=== PATIENT | male | born 1990 | race Caucasian/White ===

== ENCOUNTER 2024-05-21 08:42 | Emergency (ER) | payer BC, SELFPAY ==
--- OUTSIDE RECORDS SUMMARY | 2024-05-21 08:45 | XMS_ITS | Clinical Summary ---
Author Organization [facility] s & [facility] Address [address] [place] [address] Care Team Providers Care Avionics Shop Supervisor Name Role Phone Misty Castro Primary Care Provider [phone] [phone] Allergies No known active allergies Medications medication order composerIndication s:ADONIS (obstructive sleep apnea) 05/09/2022 AHI- 10.7 diagnosis obstructive sleep apnea 1 unit 06/05/19 23 Active omeprazole (PRILOSEC) 40 mg Delayed-Release capsuleIndications :Gastroesophageal reflux disease, unspecified whether esophagitis present Take 1 Capsule (40 mg) by mouth once daily before a meal. 90 Capsule 3 05/15/19 24 Active levothyroxine (SYNTHROID) 25 mcg tabletIndications: Subclinical hypothyroidism Take 1 Tablet (25 mcg) by mouth before breakfast. 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 (06/16/2022): EGD 06/2021 normal, repeat EGD in 3 years, propofol Colonoscopy 06/2022 normal, repeat in 3 years, propofol Encounters Date Type Department Care Team Description 05/21/2024 Nurse Triage [facility] [address] [place] [address] Misty Castro PA Blood In Stool from Last 3 Months Immunizations Immunization Administration Dates Next Due COVID-19 vaccine ([employer]-Bio NTech 30mcg/0.3mL) 12YO+ TRIP-SUCROSE PF, MDV 05/13/2022,03/12/2022 DTaP 06/16/1995, 2,01/18/1991,1990,1990 Hepatitis B, Unspecified 06/19/2003,01/02/2003,0 10/19/2002 Hib Conjugate, Unspecified 12/21/1991,,1990,1990 MMR 10/19/2002,12/21/1991 Polio Virus, Unspecified 06/16/1995,12/10,1990,1990 Td (Age >=7 Years) 10/19/2002 Tdap 03/12/2022 Varicella Vaccine 06/16/1995 Family History Medical History Relation Name Comments Obesity Brother Other Brother Peraza syndrome Cancer-colon Father Peraza syndrome Heart attack Maternal Aunt Cancer-colon Maternal Grandfather Diabetes type II Maternal Grandfather Diabetes type II Maternal Grandmother Melanoma Maternal Grandmother Stroke Maternal Grandmother Cancer-colon Maternal Uncle Cardiomyopathy Maternal Uncle Diabetes type II Maternal Uncle Diabetes type II Mother Cancer-colon Paternal Grandfather ?Peraza syndrome Cancer-colon Paternal Uncle 1 Diabetes type II Paternal Uncle 1 Cancer-colon Paternal Uncle 2 Relation Name Status Comments Brother Alive Father Alive Maternal Aunt Alive Maternal Grandfather Maternal Grandmother Maternal Uncle Mother Alive Paternal Grandfather Paternal Grandmother Alive Paternal Uncle 1 Paternal Uncle 2 Social History Tobacco Use Types Packs/Day Years Used Date Smoking Tobacco: Never Smokeless Tobacco: Never Tobacco Cessation:Counseling Given: Yes Alcohol Use Standard Drinks/Week Comments Yes 0 (1 standard drink = 0.6 oz pur e alcohol) 3/month PHQ-2 Answer Date Recorded PHQ-2 TOTAL SCORE 2 05/29/2023 Social Connections Answer Date Recorded Do you often feel lonely or isolated from those around you? 0 05/15/2023 Financial Resource Strain Answer Date R ecorded Difficulty of Paying Living Expenses 3 05/15/2023 Difficulty of Paying Living Expenses Not on file 05/15/2023 Food Insecurity Answer Date Recorded Do you worry your food will run out before you are able to buy more? 1 05/15/2023 Transportation Needs Answer Date Record ed Does lack of transportation keep you from medica l appointments? 1 05/15/2023 Does lack of transportation keep you from work, meetings or getting things that you need? 1 05/15/2023 Housing Stability Answer Date Recorded What is your housing situation today? 1 05/15/2023 Utilities Answer Date Recorded Do you have trouble paying f or utilities (for example, heat, electricity, water, phone)? 1 05/15/2023 Sex and Gender Information Value Date Recorded Sex Assigned at Not on file Legal Sex Male 6:32 AM SUPERVISOR FRAME SAMPLE AND PATTERN Gender Identity Not on file Sexual Orientation Not on file Obstetrics History Last Filed Vital Signs Vital Sign Reading Time Taken Comments Blood Pressure 123/83 05/29/2023 7:03 AM CDT Pulse 79 05/29/2023 7:03 AM CDT Temperature 36.9 C (98.5 F) 08/03/2019 1:24 PM CDT Respiratory Rate - - Oxygen Saturation 96% 05/29/2023 7:03 AM CDT Inhaled Oxygen Concentration - - Weight 108 kg (238 lb 3.2 oz) 05/29/2023 7:03 AM CDT Height 170.4 cm (5' 7.09) 05/29/2023 7:03 AM CD T Body Mass Index 37.21 05/29/2023 7:03 AM CDT Plan of Treatment Upcoming Encounters Date Type Department Care Team (Late st Contact Info) Description 05/27/2024 9:30 AM CDT Office Visit [facility] [address] [place] [address] Misty Castro PA [address] [place] [address] Health Maintenance Due Date Last Done Comments Pneumococcal series for age 6-49 (1 of 2 - PCV) 2009 COVID-19 vaccine series (3 - 2023- season) 2023 05/13/2022, 03/12/2022 BMI (ht and wt on same day) for age 18+ 05/28/2024 05/29/2023, 06/06/2022, 04/24/2022, Additional history exists Depression screening for age 12+ 05/28/2024 05/29/2023, 03/12/2022, 03/12/2022, Additional history exists Influenza Vaccine (Season Ended) 2024 Colonoscopy through age 75 06/16/202506/16, 06/16/2022, 09/19/2019 (Completed outside of [facility]), Additional history exists Tetanus booster 03/12/2032 03/12/2022, 10/19/2002 Tdap Completed 03/12/2022 HIV for age 15-65 Completed 03/21/2022 Hepatitis C screening for ag e 18-79 Completed 03/21/2022 Procedures Procedure Name Priority Date/Time Associated Diagnosis Comments COLONOSCOPY SCREENING Routine 06/16/2022 12:00 AM CDT Peraza syndrome LC HIV-1/O/2, 4TH GENERATION Routine 03/21/2022 8:31 AM SUPERVISOR FRAME SAMPLE AND PATTERN Encounter for screening for human immunodeficiency virus (HIV) LC HCV ANTIBODY RFX TO QUANT PCR Routine 03/21/2022 8:31 AM SUPERVISOR FRAME SAMPLE AND PATTERN Encounter for hepatitis C screening test for low risk patient from Last 3 Months or Most Recently Relevant to Health Maintenance Results * COLONOSCOPY SCREENING (06/16/2022 12:00 AM CDT) [facility]y [facility] PROCEDURE ORD Final Re sult * LC HCV ANTIBODY RFX TO QUANT PCR (03/21/2022 8:31 AM SUPERVISOR FRAME SAMPLE AND PATTERN) HCV Ab Non Reactive Non Reactive 03/25/2022 3:09 PM SUPERVISOR FRAME SAMPLE AND PATTERN [facility] Blood BLOOD SPECIMEN / Unknown Venipuncture / Unknown 03/21/2022 8:31 AM SUPERVISOR FRAME SAMPLE AND PATTERN 03/21/2022 8:32 AM SUPERVISOR FRAME SAMPLE AND PATTERN Narrative [facility] ([facility]) - 03/25/2022 3:09 PM SUPERVISOR FRAME SAMPLE AND PATTERN Performed at: 01 - [address] [id number] [place] Supervisor: John Holder MD, Phone: [phone] [facility] Final Res ult [facility] ([facility]ET) [address] [place] [address] * LC HIV-1/O/2, 4TH GENERATION (03/21/2022 8:31 AM SUPERVISOR FRAME SAMPLE AND PATTERN) [facility] HIV Scr 4th Gen Non Reactive Non Reactive 03/25/2022 10:06 PM SUPERVISOR FRAME SAMPLE AND PATTERN [facility] ([facility]ET) Comment: HIV Negative HIV-1/HIV-2 antibodies and HIV-1 p24 antigen were NOT detected. There is no laboratory evidence of HIV infection. Blood BLOOD SPECIMEN / Unknown Venipuncture / Unknown 03/21/2022 8:31 AM SUPERVISOR FRAME SAMPLE AND PATTERN 03/21/2022 8:32 AM SUPERVISOR FRAME SAMPLE AND PATTERN Narrative [facility] ([facility]) - 03/25/2022 10:06 PM SUPERVISOR FRAME SAMPLE AND PATTERN Performed at: [address] [id number] [place] Supervisor: John Holder MD, Phone: [phone] [facility] Final Res ult Performing Organization Address City/[facility]/ZIP Co de Phone Number [facility] (CET) [address] [place] [address] from Last 3 Months or Most Recently Relevant to Health Maintenance Insurance [facility] NON-MO-ITS * Guarantor: [facility] Account Type Relation to Patient Date of Phone Billing Address Occ [employer] 2000 ATTN H/R [address] [place] [id number] Care Teams Avionics Shop Supervisor Relationship Specialty Start Date End Date Misty Castro PA [address] [place] [address] PCP - General Physician Finished Hardware Erector 03/12/22
[2024-05-21 08:49] VITALS: BP 135/95; PULSE 81; RESP 18; TEMP 37.1; O2SAT 97; BMI 36.8
--- NOTE | 2024-05-21 09:10 | ED.GENADULT ---
HPI - General Adult General Chief complaint: Unspecified Complaint, Adult Stated complaint: rectal bleeding or 7 days Time Seen by Provider: 05/21/24 08:45 Source: patient Mode of arrival: ambulatory Limitations: no limitations History of Present Illness HPI narrative: 33-year-old male presenting with rectal bleeding for 7 days. Bleeding comes in waves, always worse after a bowel movement but does continue even when he is not having a bowel movement. His generally small amount of blood present on the tissue after he wipes. He denies feeling dizzy or lightheaded. No chest pain or shortness of breath. 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 His last 1 was in 2022 and was normal. He complains of rectal itching in general discomfort. He denies inserting anything into the rectum. He states that this started about a week ago when he had several days of constipation and did need to strain to have bowel movements. That has since passed. He denies any diarrhea. He denies blood in the toilet when he has bowel movements. He denies any abdominal pain. Related Data Home Medications ?Medication ?Instructions ?Recorded ?Confirmed omeprazole 40 mg capsule,delayed 40 mg PO DAILY 05/21/24 05/21/24 release Allergies Allergy/AdvReac Type Severity Reaction Status Date / Time No Known Drug Allergies Allergy Verified 05/21/24 08:52 Review of Systems Status of ROS: Reports: 10 or more systems reviewed and unremarkable except as noted in History and below Exam Narrative: Exam Narrative: Overweight, well-developed patient in no acute distress. Alert and oriented. Answers questions appropriately. Mood and affect are appropriate. Thoughts are goal oriented and rational. No tangential or magical thinking noted. Patient speaks in full sentences without needing to catch his breath. HEENT: Normocephalic atraumatic. Pupils are equally round reactive to light. Extraocular muscles are intact. Conjunctivae are moist without any icterus noted. Moist mucous membranes. Abdomen: Soft and nontender nondistended with normal bowel sounds. No guarding or rebound. Extremities: Bilateral lower extremities are without edema. Skin: Well perfused without any obvious rashes. Rectal: Normal tone. Patient does have the hemorrhoid present that is slightly tender to palpation. Appears to potentially have been thrombosed but now is getting better. The skin over the hemorrhoid is macerated and oozing blood. There is no blood just inside the rectum. No rectal masses are appreciated. No perirectal tenderness. No areas of fluctuance. No fissures are appreciated. Const: Vital Signs, click to edit/add: Vital Signs - 24 hr 05/21/24 08:49 Temperature 98.7 F Pulse Rate [Pulse Oximeter] 81 Respiratory Rate 18 Blood Pressure [Ri ght Upper Arm] 135/95 H Pulse Oximetry 97 Oxygen Delivery Me thod Room Air Course Vital Signs Vital signs: Initial Vital Signs Temperature 98.7 F 05/21/24 08:49 Temperature Source Temporal Artery Scan 05/21/24 08:49 Pulse Rate 81 05/21/24 08:49 Respiratory Rate 18 05/21/24 08:49 Blood Pressure 135/95 H 05/21/24 08:49 Blood Pressure Mean 108 H 05/21/24 08:49 Blood Pressure Position Sitting 05/21/24 08:49 Pulse Oximetry 97 05/21/24 08:49 Oxygen Delivery Method Room Air 05/21/24 08:49 Vital Signs Temperature 98.7 F 05/21/24 08:49 Pulse Rate 81 05/21/24 08:49 Respiratory Rate 18 05/21/24 08:49 Blood Pressure 135/95 H 05/21/24 08:49 Pulse Oximetry 97 05/21/24 08:49 Oxygen Delivery Method Room Air 05/21/24 08:49 Temperature 98.7 F 05/21/24 08:49 Pulse Rate 81 05/21/24 08:49 Respiratory Rate 18 05/21/24 08:49 Blood Pressure 135/95 H 05/21/24 08:49 Pulse Oximetry 97 05/21/24 08:49 Oxygen Delivery Method Room Air 05/21/24 08:49 Medical Decision Making MDM Narrative Medical decision making narrative: 33-year-old male with a bleeding external hemorrhoid. We discussed symptomatic treatment and follow up with primary care. Discharge Plan Discharge Clinical Impression: Hemorrhoid Patient Disposition: Home, Self-Care Condition: Stable Instructions: Sitz Bath (DC) Additional Instructions: Recommend Sitz baths, refrain from wiping after a bowel movement instead clean with warm water. Make sure bowel movements are soft and do not require straining. Okay to use [id number] hemorrhoid treatments like preparation H to help with itching and discomfort. If bleeding does not stop over the next few days, follow-up with your primary care provider. Prescriptions: No Action omeprazole 40 mg capsule,delayed release(DR/EC) 40 mg PO DAILY Follow Up/Referrals: Misty Castro PA-C [Primary Care Provider] - Stand Alone Forms: [employer] Info Instructions
--- OUTSIDE RECORDS SUMMARY | 2024-05-21 09:39 | XMS_ITS | Clinical Summary ---
Author Organization [facility] & [facility] Address [address] [place] [address] Care Team Providers Care Police Superintendent Name Role Phone Misty Castro Primary Care Provider [phone] [phone] Allergies No known active allergies Medications medication [...] Department Care Team Description 05/21/2024 Nurse Triage [facility] [address] [place] [address] Misty Castro PA Blood In Stool from Last 3 Months Immunizations Immunization Administration Dates Next Due COVID-19 vaccine ([employer] 30mcg/0.3mL) 12YO+ TRIP-SUCROSE PF, MDV 05/13/2022,03/12/2022 [...] on file Legal Sex Male 6:32 AM HYDRO EXCAVATION OPERATOR Gender Identity Not on file Sexual Orientation [...] Description 05/27/2024 9:30 AM CDT Office Visit [facility] [address] [place] [address] Misty Castro PA [address] [place] [address] Health Maintenance Due Date Last Done Comments [...] 75 06/16/202506/16, 06/16/2022, 09/19/2019 (Completed outside of [facility]), Additional history exists Tetanus booster 03/12/2032 03/12/2022, 10/19/2002 Tdap Completed 03/12/2022 HIV for age 15-65 Completed 03/21/2022 Hepatitis C screening for ag e 18-79 Completed 03/21/2022 Procedures Procedure Name Priority Date/Time Associated Diagnosis Comments COLONOSCOPY SCREENING Routine 06/16/2022 12:00 AM CDT Peraza syndrome LC HIV-1/O/2, 4TH GENERATION Routine 03/21/2022 8:31 AM HYDRO EXCAVATION OPERATOR Encounter for screening for human immunodeficiency virus (HIV) LC HCV ANTIBODY RFX TO QUANT PCR Routine 03/21/2022 8:31 AM HYDRO EXCAVATION OPERATOR Encounter for hepatitis C screening test for low risk patient from Last 3 Months or Most Recently Relevant to Health Maintenance Results * COLONOSCOPY SCREENING (06/16/2022 12:00 AM CDT) Misty [facility] PROCEDURE ORD Final Re sult * LC HCV ANTIBODY RFX TO QUANT PCR (03/21/2022 8:31 AM HYDRO EXCAVATION OPERATOR) HCV Ab Non Reactive Non Reactive 03/25/2022 3:09 PM HYDRO EXCAVATION OPERATOR [facility] ([facility]) Blood BLOOD SPECIMEN / Unknown Venipuncture / Unknown 03/21/2022 8:31 AM HYDRO EXCAVATION OPERATOR 03/21/2022 8:32 AM HYDRO EXCAVATION OPERATOR Narrative [facility] - 03/25/2022 3:09 PM HYDRO EXCAVATION OPERATOR Performed at: 01 - [address] [id number] [place]: John Holder MD, Phone: [phone] [facility] Final Res ult [facility] (CET) [address] [place] [address] * LC HIV-1/O/2, 4TH GENERATION (03/21/2022 8:31 AM HYDRO EXCAVATION OPERATOR) [facility] HIV Scr 4th Gen Non Reactive Non Reactive 03/25/2022 10:06 PM HYDRO EXCAVATION OPERATOR [facility] ([facility]ET) Comment: HIV Negative HIV-1/HIV-2 antibodies and HIV-1 p24 antigen were NOT detected. There is no laboratory evidence of HIV infection. Blood BLOOD SPECIMEN / Unknown Venipuncture / Unknown 03/21/2022 8:31 AM HYDRO EXCAVATION OPERATOR 03/21/2022 8:32 AM HYDRO EXCAVATION OPERATOR Narrative [facility] ([facility]ET) - 03/25/2022 10:06 PM HYDRO EXCAVATION OPERATOR Performed at: [address] [id number] [place] [employer] [place]: John Holder MD, Phone: [phone] [facility] Final Res ult Performing Organization Address City/[facility]/ZIP Co de Phone Number [facility] (CET) [address] [place] [address] from Last 3 Months or Most Recently Relevant to Health Maintenance Insurance [facility] NON-MT-ITS * Guarantor: [facility] Account Type Relation to Patient Date of Phone Billing Address Occ [employer] 2000 ATTN H/R [address] [place] [id number] Care Teams Police Superintendent Relationship Specialty Start Date End Date Misty Castro PA [address] [place] [address] PCP - General Physician Critical Care Nurse Practitioner 03/12/22
== END 2024-05-21 09:39 | disposition home or self-care (01) ==
LOC: ED 09:37
PROVIDERS: Emergency Provider Family Medicine; PCP Student in an Organized Health Care Education/Training Program
DX: K64.9 Unspecified hemorrhoids (principal)
CPT/HCPCS: 99282; 99283

== ENCOUNTER 2024-09-08 12:31 | Outpatient (CLI) | payer BC, SELFPAY | END 2024-09-08 12:32 | disposition home or self-care (01) | LOC: AMB 09-14 15:58 | PROVIDERS: PCP Student in an Organized Health Care Education/Training Program; Visit Provider Emergency Medicine | DX: R07.0 Pain in throat (principal) | CPT/HCPCS: A0998 ==

== ENCOUNTER 2024-09-08 13:02 | Emergency (ER) | payer BC, SELFPAY ==
--- OUTSIDE RECORDS SUMMARY | 2024-09-08 13:05 | XMS_ITS | Clinical Summary ---
Author Organization [facility] Address [address] [place] [id number] Care Team Providers Care Transit Mixer Driver Name Role Phone Misty Castro Primary Care Provider [phone] Allergies No known active allergies Medications medication order composerIndication s:ADONIS (obstructive sleep apnea) 05/09/2022 AHI- 10.7 diagnosis obstructive sleep apnea 1 unit 06/05/19 23 Active omeprazole 40 mg Delayed-Release capsuleIndications :Gastroesophageal reflux disease, unspecified whether esophagitis present Take 1 Capsule (40 mg) by mouth once daily before a meal. 90 Capsule 3 07/23/19 25 Active levothyroxine 75 mcg tabletIndications: Subclinical hypothyroidism Take 1 Tablet (75 mcg) by mouth before breakfast. 90 Tablet 3 07/26/19 25 Active Active Problems Problem Noted Date Diagnosed [...] Encounters Date Type Department Care Team Description 07/22/2024 7:00 AM CDT Office Visit [facility] [address] [place], [place] [id number] Misty Castro PA Physical (Nonfasting) 07/22/2024 Travel 06/29/2024 Refill [facility] [address] [place] [address] Misty Castro PA Refill Request (Omeprazole) from Last 3 Months Immunizations Immunization Administration Dates Next Due COVID-19 vaccine (GMIBio NTech 30mcg/0.3mL) 12YO+ TRIP-SUCROSE PF, MDV 05/13/2022,03/12/2022 [...] PHQ-2 Answer Date Recorded PHQ-2 TOTAL SCORE 0 07/22/2024 Social Connections Answer Date Recorded Do you often feel lonely or isolated from those around you? 0 05/24/2024 Financial Resource Strain Answer Date R ecorded Difficulty of Paying Living Expenses 3 05/24/2024 Difficulty of Paying Living Expenses Not on file 05/24/2024 Food Insecurity Answer Date Recorded Do you worry your food will run out before you are able to buy more? 1 05/24/2024 Transportation Needs Answer Date Record ed Does lack of transportation keep you from medica l appointments? 1 05/24/2024 Does lack of transportation keep you from work, meetings or getting things that you need? 1 05/24/2024 Housing Stability Answer Date Recorded What is your housing situation today? 1 05/24/2024 Utilities Answer Date Recorded Do you have trouble paying f or utilities (for example, heat, electricity, water, phone)? 1 05/24/2024 Sex and Gender Information Value Date Recorded Sex Assigned at Not on file Legal Sex Male 6:32 AM ASSOCIATE FINANCIAL ANALYST Gender Identity Not on file Sexual Orientation Not on file Obstetrics History Last Filed Vital Signs Vital Sign Reading Time Taken Comments Blood Pressure 124/82 07/22/2024 7:05 AM CDT Pulse 67 07/22/2024 7:05 AM CDT Temperature 36.7 C (98.1 F) 05/27/2024 9:36 AM CDT Respiratory Rate 16 07/22/2024 7:05 AM CDT Oxygen Saturation 98% 05/27/2024 9:36 AM CDT Inhaled Oxygen Concentration - - Weight 106.6 kg (235 lb) 07/22/2024 7:05 AM CDT Height 170.2 cm (5' 7) 05/27/2024 9:36 AM CDT Body Mass Index 36.81 05/27/2024 9:36 AM CDT Plan of Treatment Health Maintenance Due Date Last Done Comments Pneumococcal series for age 6-49 (1 of 2 - PCV) 2009 COVID-19 vaccine series ( season) 2023 05/13/2022, 03/12/2022 Influenza Vaccine (#1) 2024 BMI (ht and wt on same day) for age 18+ 05/27/2025 05/27/2024, 05/29/2023, 06/06/2022, Additional history exists Colonoscopy through age 75 06/16/202506/16, 06/16/2022, 09/19/2019 (Completed outside of [facility]), Additional history exists Depression screening for age 12+ 07/22/2025 07/22/2024, 05/27/2024, 05/29/2023, Additional history exists Tetanus booster 03/12/2032 03/12/2022, 10/19/2002 Hepatitis B series for 19+ Completed 06/18, 01/02/2003, 10/19/2002 HIV for age 15-65 Completed 03/21/2022 Hepatitis C screening for ag e 18-79 Completed 03/21/2022 Procedures Procedure Name Priority Date/Time Associated Diagnosis Comments TSH Routine 07/22/2024 7:45 AM CDT Subclinical hypothyroidism COLONOSCOPY SCREENING Routine 06/16/2022 12:00 AM CDT Peraza syndrome LC HIV-1/O/2, 4TH GENERATION Routine 03/21/2022 8:31 AM ASSOCIATE FINANCIAL ANALYST Encounter for screening for human immunodeficiency virus (HIV) LC HCV ANTIBODY RFX TO QUANT PCR Routine 03/21/2022 8:31 AM ASSOCIATE FINANCIAL ANALYST Encounter for hepatitis C screening test for low risk patient from Last 3 Months or Most Recently Relevant to Health Maintenance Results * (ABNORMAL) TSH (07/22/2024 7:45 AM CDT) TSH 4.76(H) 0.40 - 4.50 mIU/L [facility] Blood BLOOD SPECIMEN / Unknown 07/22/2024 7:45 AM CDT 07/22/2024 7:46 AM CDT us Misty [facility] Final Res ult [facility] [address] [place] [address], [facility] [address] [place] [address] * COLONOSCOPY SCREENING (06/16/2022 12:00 AM CDT) us Misty BURLESON GI PROCEDURE ORD Final Re sult * LC HCV ANTIBODY RFX TO QUANT PCR (03/21/2022 8:31 AM ASSOCIATE FINANCIAL ANALYST) HCV Ab Non Reactive Non Reactive 03/25/2022 3:09 PM ASSOCIATE FINANCIAL ANALYST [facility] Blood BLOOD SPECIMEN / Unknown Venipuncture / Unknown 03/21/2022 8:31 AM ASSOCIATE FINANCIAL ANALYST 03/21/2022 8:32 AM ASSOCIATE FINANCIAL ANALYST Narrative [facility] - 03/25/2022 3:09 PM ASSOCIATE FINANCIAL ANALYST Performed at: [address] [place] [id number] Guide Rail Cleaner: John Holder MD, Phone: [phone] us Misty [facility] Final Res ult [facility] ([facility] [address] [place] [address], * LC HIV-1/O/2, 4TH GENERATION (03/21/2022 8:31 AM ASSOCIATE FINANCIAL ANALYST) HIV Scr 4th Gen Non Reactive Non Reactive 03/25/2022 10:06 PM ASSOCIATE FINANCIAL ANALYST [facility] Comment: HIV Negative HIV-1/HIV-2 antibodies and HIV-1 p24 antigen were NOT detected. There is no laboratory evidence of HIV infection. Blood BLOOD SPECIMEN / Unknown Venipuncture / Unknown 03/21/2022 8:31 AM ASSOCIATE FINANCIAL ANALYST 03/21/2022 8:32 AM ASSOCIATE FINANCIAL ANALYST Narrative [facility] ([facility] - 03/25/2022 10:06 PM ASSOCIATE FINANCIAL ANALYST Performed at: [address] [place] [id number] Guide Rail Cleaner: John Holder MD, Phone: [phone] us Misty [facility] Final Res ult [facility] [address] [place] [id number], from Last 3 Months or Most Recently Relevant to Health Maintenance Insurance [facility]-ITS * Guarantor: [facility] Account Type Relation to Patient Date of Phone Billing Address [facility]/Jennifer [address] [place] [address] Care Teams Transit Mixer Driver Relationship Specialty Start Date End Date Misty Castro PA [address] [place] [address] PCP - General Physician [employer] Field Examiner 03/12/22
[2024-09-08 13:18] VITALS: BP 160/95; PULSE 103; RESP 18; TEMP 38.3; O2SAT 96; BMI 37.6
[2024-09-08 14:09] LABS: Strep A DNA Probe* NOT DETECTED (Not Detectd)
--- NOTE | 2024-09-08 14:09 | ED_ITS ---
HPI - General Adult General Date Seen: 09/08/24 Chief complaint: Sore Throat Stated complaint: Shortness of breath Time Seen by Provider: 09/08/24 13:48 Source: patient Mode of arrival: ambulatory Limitations: no limitations History of Present Illness HPI narrative: Patient is a 34-year-old male presenting to the emergency department for sore throat. The sore throat has been going on for the past few days. States it has being going more sore and it is painful to eat. Does feel some mild shortness of breath mostly when he tries to breathe out of his nose. Does states he has been having congestion for the past couple weeks but denies any sinus pain or nasal discharge. Has not noticed any swelling underneath his tongue. Denies any trismus. Denies any chest pain. Has been having a mild cough. Denies weakness, numbness, abdominal pain. Has been feeling warm at home but they do not know where their thermometer is so has not checked his temperature. Is not aware of any sick contacts. No other concerns noted. Related Data Home Medications ?Medication ?Instructions ?Recorded ?Confirmed omeprazole 40 mg capsule,delayed 40 mg PO DAILY 09/08/24 release levothyroxine 75 mcg tablet 75 mcg PO DAILY 09/08/24 0 09/08/24 Allergies Allergy/AdvReac Type Severity Reaction Status Date / Time No Known Drug Allergies Allergy Verified 09/08/24 13:27 Review of Systems Status of ROS: Reports: 10 or more systems reviewed and unremarkable except as noted in History and below PFSH PFS Social History Smoking Status: Never smoker Do you use any of these nicotine containing products: None Second hand tobacco smoke exposure: No How often do you have a drink containing alcohol: never AUDIT-C Alcohol total score: 0 Non-prescribed substance use: denies use Exam Narrative: Exam Narrative: Const: Well-nourished, Well-developed, in mild distress Eyes: PERRL, no conjunctival injection, and symmetrical lids HENT: Atraumatic external nose and ears. Moist mucous membranes. Uvula midline, no tonsillar exudate or swelling. Does have an erythematous posterior oropharynx. No swelling noted underneath the tongue. No sinus tenderness. Neck: Symmetric, trachea midline, No thyromegaly. CVS: RRR, No murmurs or gallops. Peripheral pulses 2+ and equal in all extremities RESP: Unlabored respiratory effort. Clear to auscultation bilaterally. MSK:Extremities w/o deformity, Normal Active ROM Skin: Warm, Dry. No rashes or lesions. Neuro: Normal Muscle tone, No focal neurological deficits. Psych: Awake, Alert, & Oriented x3. Appropriate mood and affect. Const: Vital Signs, click to edit/add: Vital Signs - 24 hr 09/08/24 13:18 Temperature 100.9 F H Pulse Rate [Right Pulse Oximeter] 103 H Respiratory Rate 18 Blood Pressure [Ri ght Upper Arm] 160/95 H Pulse Oximetry 96 Oxygen Delivery Me thod Room Air Course Vital Signs Vital signs: Initial Vital Signs Temperature 100.9 F H 09/08/24 13:18 Temperature Source Temporal Artery Scan 09/08/24 13:18 Pulse Rate 103 H 09/08/24 13:18 Pulse Rhythm Regular 09/08/24 13:18 Pulse Strength 3+ Normal 09/08/24 13:18 Respiratory Rate 18 09/08/24 13:18 Blood Pressure 160/95 H 09/08/24 13:18 Blood Pressure Mean 116 H 09/08/24 13:18 Blood Pressure Position Sitting 09/08/24 13:18 Pulse Oximetry 96 09/08/24 13:18 Oxygen Delivery Method Room Air 09/08/24 13:18 Vital Signs Temperature 100.9 F H 09/08/24 13:18 Pulse Rate 103 H 09/08/24 13:18 Respiratory Rate 18 09/08/24 13:18 Blood Pressure 160/95 H 09/08/24 13:18 Pulse Oximetry 96 09/08/24 13:18 Oxygen Delivery Method Room Air 09/08/24 13:18 Temperature 100.9 F H 09/08/24 13:18 Pulse Rate 103 H 09/08/24 13:18 Respiratory Rate 18 09/08/24 13:18 Blood Pressure 160/95 H 09/08/24 13:18 Pulse Oximetry 96 09/08/24 13:18 Oxygen Delivery Method Room Air 09/08/24 13:18 Medications Administered Medications: Discontinued Medications Generic Name Dose Route Start Last Admin Trade Name Freq PRN Reason Stop Dose Admin Dexamethasone 10 mg 09/08/24 14:08 09/08/24 14:13 Dexamethasone 10 Mg/Ml Pf PO 09/08/24 14:09 10 mg ONCE ONE Administration Medical Decision Making MDM Narrative Medical decision making narrative: Patient is a 34-year-old male presenting for sore throat. Patient is not showing signs of peritonsillar abscess, Ryan angina, retropharyngeal abscess,Lemierre disease or any other concerning oral pharynx or deep neck space abscesses. Imaging is not necessary. COVID/flu/RSV test pending along with a strep test. Dexamethasone given for her sore throat. Offered Tylenol or ibuprofen for his fever but he declines states he will take some at home. Patient otherwise appearing well and I do believe septic workup is necessary as symptoms are likely just viral pharyngitis. Swabs were negative I will do a m araseli screen. Will send him home and call in if results are positive. He is agreeable to this plan. Lab Data Labs: Lab Results 09/08/24 Range/Units 13:25 SARS-CoV-2 (PCR) Negative SARS-CoV-2 (Negative) Influenza Type A (PCR) Negative PCR FLU A (Negative) Influenza Type B (PCR) Negative PCR FLU B (Negative) RSV (PCR) Negative PCR RSV (Negative) Group A Strep DNA NOT DETECTED (Not Detectd) Discharge Plan Discharge Clinical Impression: Pharyngitis Qualifiers: Pharyngitis/tonsillitis etiology: unspecified etiology Qualified Code(s): J02.9 - Acute pharyngitis, unspecified Patient Disposition: Home, Self-Care Condition: Stable Instructions: Pharyngitis (ED) Additional Instructions: We will call you if your mono test is positive. Take Tylenol and ibuprofen for your pain. Ibuprofen has anti-inflammatory effects that should help with your sore throat. If you start developing difficulty breathing through your mouth, shortness of breath or any other concerning symptoms return for re-evaluation. Prescriptions: No Action levothyroxine 75 mcg tablet 75 mcg PO DAILY omeprazole 40 mg capsule,delayed release(DR/EC) 40 mg PO DAILY Follow Up/Referrals: Misty Castro PA-C [Primary Care Provider, Family Practice] Stand Alone Forms: [email or web address])th Info Instructions
[2024-09-08] MEDS: DEXAMETHASONE 10 MG/ML PF PO (14:13)
[2024-09-08 14:23] LABS: PCR FLU A Negative PCR FLU A (Negative); PCR FLU B Negative PCR FLU B (Negative); PCR RSV Negative PCR RSV (Negative); SARS PCR* Negative SARS-CoV-2 (Negative)
[2024-09-08 15:18] LABS: Mono Screen* Negative (Negative)
== END 2024-09-08 15:39 | disposition home or self-care (01) ==
PROVIDERS: Emergency Provider Student in an Organized Health Care Education/Training Program; PCP Student in an Organized Health Care Education/Training Program
DX: J02.9 Acute pharyngitis, unspecified (principal); R06.02 Shortness of breath; R05.9 Cough, unspecified
CPT/HCPCS: 36415; 86308; 87631; 87651; 99283; J1100